=== PATIENT | female | born 1990 | race Caucasian/White ===

== ENCOUNTER 2017-10-22 09:40 | Day surgery (SDC) | payer OTHER ==
[~2017-10-22] VITALS: Ht 175.3 cm; Wt 62.4 kg
[2017-10-22 10:39] VITALS: BP 112/75
[2017-10-22] MEDS ORDERED: LACTATED RINGERS 1,000 ML IV SCH (10:39)
[2017-10-22] MEDS ORDERED: ALBU8.5H8 INH (10:48)
[2017-10-22] MEDS ORDERED: VITAMIN D PO (10:48)
[2017-10-22] MEDS ORDERED: FENTANYL PF 100 MCG/2ML ONE (11:55)
[2017-10-22] MEDS ORDERED: MIDAZOLAM 1 MG/ML, 2ML ONE (11:55)
[2017-10-22] MEDS ORDERED: DEXAMETHASONE 4 MG/ML, 1ML ONE (11:58)
[2017-10-22] MEDS ORDERED: ONDANSETRON 2MG/ML, 2ML ONE (11:58)
[2017-10-22] MEDS ORDERED: PROPOFOL 10 MG/ML, 20ML ONE (11:58)
[2017-10-22] MEDS ORDERED: OXYTOCIN 10 UNITS/ML, 1ML ONE (11:58)
[2017-10-22] MEDS ORDERED: KETOROLAC 30 MG/1 ML ONE (11:58)
[2017-10-22] MEDS ORDERED: METHYLERGONOVINE 0.2 MG/ML IM ONE (11:58)
[2017-10-22] MEDS ORDERED: SILVER NITRATE STICK TP ONE (11:58)
[2017-10-22] MEDS ORDERED: MISOPROSTOL 200 MCG TABLET ONE (11:58)
[2017-10-22] MEDS ORDERED: OXYcodone 5 MG/5 ML ORAL.SOL UDC PO PRN (12:30)
[2017-10-22] MEDS ORDERED: PROMETHAZINE 25 MG/ML, 1ML IV PRN (12:30)
[2017-10-22] MEDS ORDERED: FENTANYL PF 100 MCG/2ML IV PRN (12:30)
[2017-10-22] MEDS ORDERED: ACETAMINOPHEN 325 MG TABLET PO PRN (12:30)
[2017-10-22] MEDS ORDERED: ACETAMINOPHEN 650 MG/20.3 ML UDC ONE ×2 (13:07→13:12)
[2017-10-22] MEDS ORDERED: OXYcodone 5 MG/5 ML ORAL.SOL UDC ONE (13:07)
[2017-10-22] MEDS ORDERED: CEFAZOLIN 1,000 MG ONE (15:36)
== END 2017-10-22 14:20 ==
LOC: OUT 09:40
PROVIDERS: ATTEND Obstetrics & Gynecology
DX: O02.1 Missed abortion (principal); Z86.14 Personal history of Methicillin resistant Staphylococcus aureus infection; Z3A.01 Less than 8 weeks gestation of pregnancy
CPT/HCPCS: 59820; 88305; J0690; J1100; J1885; J2250; J2405; J2590; J2704; J3010; J7120; J2210

== ENCOUNTER 2018-01-08 09:35 | Day surgery (SDC) | payer OTHER ==
[~2018-01-08] VITALS: Ht 172.7 cm; Wt 63.9 kg
[~2018-01-08 09:35] MED LIST: ALBU8.5H8 INH; LACT1CAP35 PO; PREN1TAB60 PO; VITAMIN D PO
[2018-01-08 10:17] VITALS: BP 113/71
[2018-01-08] MEDS ORDERED: LACTATED RINGERS 1,000 ML IV SCH (10:27)
[2018-01-08] MEDS ORDERED: MIDAZOLAM 1 MG/ML, 2ML ONE (11:15)
[2018-01-08] MEDS ORDERED: FENTANYL PF 250 MCG/5ML ONE (11:15)
[2018-01-08] MEDS ORDERED: PROPOFOL 100 ML ONE (11:34)
[2018-01-08] MEDS ORDERED: PROPOFOL 10 MG/ML, 20ML ONE ×2 (11:35→14:01)
[2018-01-08] MEDS ORDERED: SCOPOLAMINE PATCH, 1.5MG PATCH.TD72 TD ONE (11:59)
[2018-01-08 12:22] LABS: HCG UR SG 1.006 (1.003-1.030)
[2018-01-08] MEDS ORDERED: CEFAZOLIN 1,000 MG ONE (12:22)
[2018-01-08] MEDS ORDERED: BACITRACIN 50,000 UNIT ONE (12:24)
[2018-01-08] MEDS ORDERED: EPINEPHRINE TOPICAL SOLN 1 MG/ML, 30ML ONE (12:24)
[2018-01-08] MEDS ORDERED: LIDOCAINE 1%-EPI 1:100K, 30ML ONE (12:24)
[2018-01-08] MEDS ORDERED: OXYMETAZOLINE NASAL SPRAY 0.05%, 15ML ONE (12:24)
[2018-01-08] MEDS ORDERED: FLUORESCEIN SODIUM 500 MG/5 ML ONE (12:24)
[2018-01-08] MEDS ORDERED: BACITRACIN OINT 500U/GM, 15 GM ONE (12:24)
[2018-01-08] MEDS ORDERED: DEXAMETHASONE 4 MG/ML, 1ML ONE (12:32)
[2018-01-08] MEDS ORDERED: MEPERIDINE/PF 25MG/0.5ML IVPush PRN (13:30)
[2018-01-08] MEDS ORDERED: HYDROmorphone 1 MG/ML, 1ML IV PRN (13:30)
[2018-01-08] MEDS ORDERED: ACETAMINOPHEN 325 MG TABLET PO PRN (13:30)
[2018-01-08] MEDS ORDERED: FENTANYL PF 100 MCG/2ML IV PRN (13:30)
[2018-01-08] MEDS ORDERED: ONDANSETRON 2MG/ML, 2ML IV PRN (13:30)
[2018-01-08] MEDS ORDERED: OXYcodone 5 MG/5 ML ORAL.SOL UDC PO PRN (13:30)
[2018-01-08] MEDS ORDERED: PROMETHAZINE 25 MG/ML, 1ML IV PRN (13:30)
[2018-01-08] MEDS ORDERED: ONDANSETRON 2MG/ML, 2ML ONE (14:01)
[2018-01-08] MEDS ORDERED: ROCURONIUM 10MG/ML,5ML ONE (14:01)
[2018-01-08] MEDS ORDERED: OXYcodone 5 MG/5 ML ORAL.SOL UDC ONE (14:33)
== END 2018-01-08 16:10 | disposition home or self-care (01) ==
LOC: OUT 09:35
PROVIDERS: ATTEND Otolaryngology
DX: J32.0 Chronic maxillary sinusitis (principal); J32.2 Chronic ethmoidal sinusitis; Z91.040 Latex allergy status
CPT/HCPCS: 31255; 31267; 61782; 81025; 87070; 87075; 87077; 87186; 87205; 88304; J0690; J1100; J2250; J2405; J2704; J3010; J3490; J7120; S1090